=== PATIENT | female | born 1945 | race Caucasian/White ===

== ENCOUNTER → 2020-11-30 | Outpatient (CLI) | payer OTHER ==
[~2020-11-30] MED LIST: HYDROCHLOROTH12.5 M1 PO; LOSARTAN POTAS100 MG PO; NAPROSYN500 MG PO; PROBIOTIC1 EAC7 PO; SIMVASTATIN40 MG PO; TUMS200 MG PO; VITAMIN D350 MC3 PO; ZINC50 M1 PO
[2020-11-30 11:06] LABS: HEMATOCRIT 41.2 % (37.0-47.0); HEMOGLOBIN 13.9 gm/dL (12.0-15.0); MCH 32.5 pg (26.0-34.0); MCHC 33.8 g/dL (28.0-37.0); RBC 4.29 mil/uL (4.20-5.00); RDW 13.7 % (10.5-14.5); URINE BILIRUBIN NEGATIVE (Negative); URINE BLOOD NEGATIVE (Negative); URINE CLARITY CLEAR; URINE COLOR YELLOW; URINE GLUCOSE-RANDOM* NEGATIVE (Negative); URINE KETONES NEGATIVE (Negative); URINE NITRITE-REFLEX NEGATIVE (Negative); URINE PROTEIN (DIPSTICK) NEGATIVE (Negative); URINE UROBILINOGEN 0.2 E.U./dl (0.2-1.0); WBC 8.3 thou/uL (4.0-11.0)
[2020-11-30 11:07] LABS: URINE LEUKOCYTES-REFLEX 1+ (Negative)
[2020-11-30 11:22] LABS: APTT 25.4 Seconds (24.5-32.8); INR 0.97; PROTIME 10.6 Seconds (10.5-12.1)
[2020-11-30 11:27] LABS: ALBUMIN 4.3 g/dL (3.4-5.0); CALCIUM 9.4 mg/dL (8.5-10.1); CREATININE 1.1 mg/dL (0.6-1.0); POTASSIUM 3.9 mmol/L (3.5-5.1); TOTAL BILIRUBIN 0.7 mg/dL (0.2-1.0); TOTAL PROTEIN 6.9 g/dL (6.4-8.2)
[2020-11-30 11:33] LABS: SQUAMOUS 0-3 Few /LPF (0-3)
[2020-11-30 11:36] LABS: BACTERIA-REFLEX 1-9 Few /HPF (None Seen); CASTS None Seen /LPF (None Seen); CRYSTALS None Seen /LPF (None Seen); URINE RBC None Seen /HPF (NONE SEEN); URINE WBC-REFLEX 0-5 Rare /HPF (0-5)
--- NOTE | 2020-11-30 12:23 | EKG ---
[place] [address] [facility] [place] [employer] [place] [address] ELECTROCARDIOGRAM REPORT Name: MARIBELL BLEVINS [facility] [id number] Admission: 11/30/20 Attend Phys: Garrick Israel, Discharge: Date of : 43 Report #: [id number] [facility] Test Date: 2020-11-30 Test Time: 10:55:29 Pat Name: MARIBELL BLEVINS Department: Room: Gender: F Title Assistant: Tiff LYNNE : 1945 Requested By: Garrick Israel Order Number: [id number] : Qasim Fregoso Measurements Intervals [place] Rate: 86 P: 59 MT: 158 QRS: 45 QRSD: 94 T: 52 QT: 354 QTc: 424 Interpretive Statements Sinus rhythm Borderline low voltage, extremity leads No previous ECG available for comparison Electronically Signed On 11-30-2020 12:23:20 CDT by Qasmi Fregoso [email or web address] <ELECTRONICALLY SIGNED> By: Qasim Fregoso MD, [facility] 11/30/20 1223 1055 1055 Qasim Fregoso MD, FACC /EPI
== END ==
LOC: PAC 07:23
PROVIDERS: ATTEND Specialist
DX: Z01.812 Encounter for preprocedural laboratory examination (principal); Z01.810 Encounter for preprocedural cardiovascular examination; I10 Essential (primary) hypertension; M51.26 Other intervertebral disc displacement, lumbar region

== ENCOUNTER 2020-12-14 06:48 | Observation (INO) | payer OTHER ==
[~2020-12-14] VITALS: Ht 157.5 cm; Wt 58.1 kg
[2020-12-14 08:58] VITALS: BP 154/76
[2020-12-14 12:45] VITALS: BP 153/77
[2020-12-14 13:15] VITALS: BP 152/84
--- NOTE | 2020-12-14 13:20 | NUR ---
ASSUMED PT CAREUPON TRANSFER TO UNIT AROUND 1208. PATIENT IS A&OX4 AND ABLE TO MAKE NEEDS KNOWN. PATIENT COMPLAINS OF PAIN TO THE LOWER BACK. PATIENT IS ON ROOM AIR. DRESSING TO LOWER BACK IS DRY AND INTACT. HOSEA HOSE AND SCD'S ARE ON. FALL PRECAUTIONS ARE IN PLACE, CALL LIGHT WITHIN REACH. AT BEDSIDE.
--- NOTE | 2020-12-14 15:13 | NUR ---
ASSESSMENT: CM REVIEWED CHART AND SPOKE WITH PT AT THE BEDSIDE. PT IS ALERT AND ORIENTED X4. PT IS S/P DISCECTOMY. PT REPORTS THAT SHE LIVES IN A HOUSE WITH HER . PT REPORTS HAVING 2 STEPS TO ENTER AND NO STEPS ONCE INSIDE. PT REPORTS SHE IS FULLY INDEPENDENT WITH ADLS AND AMBULATION. REPORTS HE HAS A CANE AND WALKER AT HOME IF EVER NEEDED. PT REPORTS HAVING A WALK IN SHOWER. PT DENIES HAVING HH IN THE PAST OR A SNF STAY. CM DISCUSSED ROLE. PT DOES NOT ANTICIPATE HAVING ANY NEEDS FROM CM. CM WILL CONTINUE TO FOLLOW TO ASSIST NEEDED.
[2020-12-14 16:20] VITALS: BP 130/81
[2020-12-14 20:01] VITALS: BP 120/72
--- NOTE | 2020-12-15 01:06 | NUR ---
ASSESSED AT START OF SHIFT, PT RESTING IN BED A&OX4. PAIN AND MUSCLE RELAXANT GIVEN. UP WITH SBA TO THE BATHROOM. POSSIBLE DC TOMORROW. DENIES NAUSEA AND VOMITING. FALL PREC IN PLACE, SCD'S INTACT WILL CONT WITH POC TILL EOS.NO FURTHER SIGNS OF DISCOMFORT.
[2020-12-15 07:36] VITALS: BP 119/61
--- NOTE | 2020-12-15 09:40 | NUR ---
Assumed care of pt at 0700. Pt a&ox4. Pt controlled with prn pain meds. Dressing c/d/i. Pt will discharge to home today. Family at bedside. Call light within reach. Will continue to monitor.
[2020-12-15] MEDS ORDERED: CYCLOBENZAPRINE5 MG PO (11:06)
[2020-12-15 11:30] VITALS: BP 119/61
--- NOTE | 2020-12-15 13:21 | NUR ---
ON-GOING ASSESSMENT: CM REVIEWED CHART. PT DID WELL WITH THERAPY TODAY AND CLEARED FOR HOME. PT HAS ORDERS TO DISCHARGE HOME NO NEEDS FROM CM.
== END 2020-12-15 11:48 | disposition home or self-care (01) ==
LOC: OR → TBA 06:48 → OR 07:23 → 4S 11:59 → OR 12:05 → 4S 12:08 → OR 12:55 → 4S 12-15 11:48
PROVIDERS: ADMIT Hospitalist; ATTEND Specialist
DX: M51.26 Other intervertebral disc displacement, lumbar region (principal); M19.90 Unspecified osteoarthritis, unspecified site; I10 Essential (primary) hypertension; Z88.5 Allergy status to narcotic agent; Z79.899 Other long term (current) drug therapy
CPT/HCPCS: 10102; 50010; 50101; 50402; 55340; 56525; 56528; 56532; 57103; 58457; 58567; 62110; 62900; 70005